=== PATIENT | male | born 1995 | race Caucasian/White ===

== ENCOUNTER 2020-05-24 15:54 | Emergency (ER) | payer OTHER ==
[2020-05-24 16:13] LABS: BILIRUBIN,URINE NEGATIVE (NEGATIVE); GLUCOSE, URINE (UA) NEGATIVE (NEGATIVE); KETONES,URINE (UA) NEGATIVE (NEGATIVE); LEUKOCYTE ESTERASE, URINE NEGATIVE (NEGATIVE); NITRITE,URINE NEGATIVE (NEGATIVE); OCCULT BLOOD,URINE NEGATIVE (NEGATIVE); PROTEIN,URINE NEGATIVE (NEGATIVE); UROBILINOGEN,URINE 0.2 (NORMAL) E.U./dL (NORMAL)
[2020-05-24 16:14] LABS: CLARITY,URINE CLEAR (CLEAR)
--- NOTE | 2020-05-24 16:59 | ED Physician Documentation ---
PD HPI ABD PAIN - Stated complaint Stated Complaint: ABD PX - Chief complaint Chief Complaint: Abd Pain - History obtained from History obtained from: Patient - Additional information Additional information: 3 days of left lower quadrant pain, pretty constant. No associated fevers or chills. No nausea or bowel movement changes. Today noticed some greenish drainage from the umbilicus. Never had that before. No history of abdominal surgeries. Review of Systems Constitutional: denies: Fever, Chills Throat: reports: Reviewed and negative Cardiac: reports: Reviewed and negative Respiratory: reports: Reviewed and negative GI: reports: Abdominal Pain. denies: Nausea, Vomiting, Constipation, Diarrhea PD PAST MEDICAL HISTORY - Present Medications Home Medications: Ambulatory Orders Medication Instructions Recorded Confirmed Ciprofloxacin HCl [Cipro] 500 mg PO BID #20 tablet 05/24/20 metroNIDAZOLE [Flagyl] 500 mg PO TID #30 tablet 05/24/20 - Allergies Allergies/Adverse Reactions: Allergies Allergy/AdvReac Type Severity Reaction Status Date / Time No Known Drug Allergies Allergy Verified 05/24/20 15:59 PD ED PE NORMAL - Vitals Vital signs reviewed: Yes - General General: Alert and oriented X 3, No acute distress - HEENT HEENT: PERRL, EOMI - Neck Neck: Supple, no meningeal sign, No bony TTP - Abdomen Abdomen: Normal bowel sounds, Soft, Other (Mild left lower quadrant tenderness without surgical signs, exploration of his umbilicus shows just a tiny bit of greenish drainage.) - Back Back: No CVA TTP, No spinal TTP - Derm Derm: Normal color, Warm and dry - Neuro Neuro: Alert and oriented X 3, Normal speech Results - Vitals Vitals: Vital Signs - 24 hr 05/24/20 05/24/20 15:56 18:41 Temperature 36.6 C 37.1 C Heart Rate 103 H 100 Respiratory 22 18 Rate Blood Pressure 155/84 H 152/75 H O2 Saturation 100 100 Oxygen O2 Source Room air - Labs Labs: Laboratory Tests 05/24/20 05/24/20 05/24/20 16:06 17:00 17:00 WBC 8.5 RBC 4.67 L Hgb 14.7 Hct 42.2 MCV 90.4 MCH 31.5 H MCHC 34.8 RDW 12.5 Plt Count 322 MPV 8.8 Neut # (Auto) 5.8 Lymph # (Auto) 1.8 [place] # (Auto) 0.7 Eos # (Auto) 0.1 Baso # (Auto) 0.1 Absolute Nucleated RBC 0.00 Nucleated RBC % 0.0 Sodium 135 Potassium 3.8 Chloride 100 L Carbon Dioxide 25 Anion Gap 10.0 BUN 14 Creatinine 1.0 Estimated GFR (MDRD) 90 Glucose 99 Calcium 9.7 Total Bilirubin 1.0 AST 23 ALT 33 Alkaline Phosphatase 57 Total Protein 8.3 H Albumin 4.8 Globulin 3.5 Albumin/Globulin Ratio 1.4 Lipase 21 L Urine Color YELLOW Urine Clarity CLEAR Urine pH 5.0 Ur Specific [place] 1.015 Urine Protein NEGATIVE Urine Glucose (UA) NEGATIVE Urine Ketones NEGATIVE Urine Occult Blood NEGATIVE Urine Nitrite NEGATIVE Urine Bilirubin NEGATIVE Urine Urobilinogen 0.2 (NORMAL) Ur Leukocyte Esterase NEGATIVE Ur Microscopic Review NOT INDICATED Urine Culture Comments NOT INDICATED - Rads (name of study) CT A/P Radiology: EMP read contemporaneously (Sigmoid diverticulitis, uncomplicated.) PD MEDICAL DECISION MAKING - ED course ED course: 24-year-old gentleman with 3 days of left lower quadrant pain, benign exam. Very minimal drainage from the umbilicus, suspect these are unrelated given the findings on CT but both should be treated with the antibiotics. Departure - Departure Disposition: 01 Home, Self Care Clinical Impression: Diverticulitis of gastrointestinal tract Condition: Good Record reviewed to determine appropriate education?: Yes Instructions: ED Diverticulitis Prescriptions: Ciprofloxacin HCl [Cipro] 500 mg PO BID #20 tablet metroNIDAZOLE [Flagyl] 500 mg PO TID #30 tablet Comments: Do not drink alcohol while on the antibiotics. [place] They may want to schedule you for a colonoscopy in 6 to 8 weeks for recheck. Return if worse. No heavy exercise while on the antibiotics. Discharge Date/Time: 05/24/20 19:02
[2020-05-24] MEDS ORDERED: IOVERSOL 320 100 ML VIAL IVP ONE ×2 (17:20→18:21)
[2020-05-24 17:27] LABS: ALBUMIN 4.8 g/dL (3.2-5.5); ALBUMIN/GLOBULIN RATIO 1.4 (1.0-2.2); BASOPHILS # (AUTO) 0.1 10^3/uL (0.0-0.1); BASOPHILS % (AUTO) 0.6 %; CALCIUM 9.7 mg/dL (8.5-10.3); EOSINOPHILS # (AUTO) 0.1 10^3/uL (0.0-0.7); EOSINOPHILS % (AUTO) 1.4 %; HGB - HEMOGLOBIN 14.7 g/dL (14.0-18.0); LYMPHOCYTES # (AUTO) 1.8 10^3/uL (1.5-3.5); LYMPHOCYTES % (AUTO) 20.8 %; MEAN CORPUSCULAR HEMOGLOBIN 31.5 pg (27.0-31.0); MEAN CORPUSCULAR HGB CONC 34.8 g/dL (32.0-36.0); MEAN CORPUSCULAR VOLUME 90.4 fL (80.0-94.0); MEAN PLATELET VOLUME 8.8 fL (7.4-11.4); MONOCYTES # (AUTO) 0.7 10^3/uL (0.0-1.0); MONOCYTES % (AUTO) 8.4 %; NEUTROPHILS # (AUTO) 5.8 10^3/uL (1.5-6.6); NEUTROPHILS % (AUTO) 68.1 %; PLT - PLATELET COUNT 322 10^3/uL (130-450); RED BLOOD COUNT 4.67 10^6/uL (4.70-6.10); RED CELL DISTRIBUTION WIDTH 12.5 % (12.0-15.0); TOTAL PROTEIN 8.3 g/dL (6.7-8.2); WHITE BLOOD COUNT 8.5 x10^3/uL (4.8-10.8)
[2020-05-24 18:42] VITALS: BP 152/75
--- NOTE | 2020-05-24 18:44 | CT Report ---
PROCEDURE: Abdomen/Pelvis W INDICATIONS: IV only, LLQ pain, umbilical drainage ?urachal cys CONTRAST: IV CONTRAST: Optiray 320 ml: 100 PO CONTRAST: *NO PO CONTRAST TECHNIQUE: After the administration of oral and intravenous contrast, 5 mm thick sections acquired from the diap hragms to the symphysis. 5 mm thick coronal and sagittal reformats were acquired. For radiation dos e reduction, the following was used: automated exposure control, adjustment of mA and/or kV accordin g to patient size. COMPARISON: None. FINDINGS: Image quality: Excellent. ABDOMEN: Lung bases: Lung bases are clear. Heart size is normal. Solid organs: Liver and spleen are normal in size and enhancement. Gallbladder appears normal Bili rahul system is non dilated. Pancreas enhances normally. No adrenal nodules. Kidneys demonstrate nor mal size and enhancement, without hydronephrosis. Peritoneum and bowel: Bowel loops demonstrate normal wall thickness and caliber. No free fluid or a ir. Nodes and vessels: No retroperitoneal or mesenteric adenopathy by size criteria. Aorta and inferior vena cava are normal in size. Miscellaneous: No ventral hernias. PELVIS: Genitourinary: Bladder wall thickness is normal. Miscellaneous: No inguinal hernias or adenopathy. At the left lower quadrant the junction of the de scending colon as it approaches the sigmoid colon shows acute diverticulitis, but no peridiverticular abscess. No abnormality is seen at the umbilicus or the rectus area. Bones: No suspicious bony lesions. No vertebral body compression fractures. IMPRESSION: Acute diverticulitis left lower quadrant, no source of umbilical drainage is found. Ther e is no sign of ureteral fluid collection or communication between the umbilicus and the peritoneal s pace. Reviewed by: Rommel Back MD on 05/24/2020 6:43 PM PDT Approved by: Rommel Back MD on 05/24/2020 6:43 PM PDT Station ID: [id number]
[2020-05-24] MEDS ORDERED: CIPROFLOXACIN 250 MG TABLET PO STA (18:48)
[2020-05-24] MEDS ORDERED: metroNIDAZOLE 250 MG TABLET PO STA (18:49)
== END 2020-05-24 19:02 | disposition home or self-care (01) ==
LOC: ED 15:54
DX: K57.32 Diverticulitis of large intestine without perforation or abscess without bleeding (principal)
CPT/HCPCS: 36415; 74177; 80053; 81003; 83690; 85025; 99284; A9270; Q9967; 81001; 87086

== ENCOUNTER 2020-09-17 19:52 | Outpatient (CLI) | payer OTHER | END 2020-09-17 19:53 | disposition EMS.NT | LOC: EMS 19:52 | PROVIDERS: ATTEND Surgery | DX: R45.851 Suicidal ideations (principal) ==

== ENCOUNTER 2020-09-17 20:54 | Emergency (ER) | payer OTHER ==
[2020-09-17 21:09] LABS: BASOPHILS # (AUTO) 0.1 10^3/uL (0.0-0.1); BASOPHILS % (AUTO) 0.8 %; EOSINOPHILS # (AUTO) 0.3 10^3/uL (0.0-0.7); EOSINOPHILS % (AUTO) 3.1 %; HGB - HEMOGLOBIN 14.5 g/dL (14.0-18.0); LYMPHOCYTES # (AUTO) 3.6 10^3/uL (1.5-3.5); LYMPHOCYTES % (AUTO) 36.5 %; MEAN CORPUSCULAR HEMOGLOBIN 31.6 pg (27.0-31.0); MEAN CORPUSCULAR HGB CONC 34.5 g/dL (32.0-36.0); MEAN CORPUSCULAR VOLUME 91.5 fL (80.0-94.0); MEAN PLATELET VOLUME 8.6 fL (7.4-11.4); MONOCYTES # (AUTO) 0.9 10^3/uL (0.0-1.0); MONOCYTES % (AUTO) 9.2 %; NEUTROPHILS # (AUTO) 4.7 10^3/uL (1.5-6.6); NEUTROPHILS % (AUTO) 48.8 %; PLT - PLATELET COUNT 308 10^3/uL (130-450); RED BLOOD COUNT 4.59 10^6/uL (4.70-6.10); RED CELL DISTRIBUTION WIDTH 13.3 % (12.0-15.0); WHITE BLOOD COUNT 9.7 x10^3/uL (4.8-10.8)
[2020-09-17 21:21] LABS: MUDS CUTOFF CONCENTRATIONS CUTOFF CONC BELOW:
[2020-09-17 21:25] LABS: BILIRUBIN,URINE NEGATIVE (NEGATIVE); GLUCOSE, URINE (UA) NEGATIVE (NEGATIVE); KETONES,URINE (UA) NEGATIVE (NEGATIVE); LEUKOCYTE ESTERASE, URINE NEGATIVE (NEGATIVE); NITRITE,URINE NEGATIVE (NEGATIVE); OCCULT BLOOD,URINE NEGATIVE (NEGATIVE); PROTEIN,URINE NEGATIVE (NEGATIVE); UROBILINOGEN,URINE 0.2 (NORMAL) E.U./dL (NORMAL)
[2020-09-17 21:26] LABS: ACETAMINOPHEN < 10 ug/mL (10-30); ALBUMIN 4.3 g/dL (3.2-5.5); ALBUMIN/GLOBULIN RATIO 1.1 (1.0-2.2); ALKALINE PHOSPHATASE 49 IU/L (42-121); ALT ALANINE AMINOTRANSFERASE 79 IU/L (10-60); AST ASPARTATE AMINOTRANSFERASE 37 IU/L (10-42); BILIRUBIN,TOTAL 0.6 mg/dL (0.2-1.0); BUN - BLOOD UREA NITROGEN 17 mg/dL (6-20); CALCIUM 9.4 mg/dL (8.5-10.3); CARBON DIOXIDE - CO2 25 mmol/L (21-32); CHLORIDE 104 mmol/L (101-111); CREATININE 0.8 mg/dL (0.6-1.2); GLUCOSE 95 mg/dL (70-100); LIPASE 24 U/L (22-51); SALICYLATE < 6.0 mg/dL; SODIUM 142 mmol/L (135-145); TOTAL PROTEIN 8.1 g/dL (6.7-8.2)
[2020-09-17 21:26] LABS: CLARITY,URINE CLEAR (CLEAR)
--- NOTE | 2020-09-17 21:29 | ED Physician Documentation ---
PD HPI MHE - Stated complaint Stated Complaint: MHE - Chief complaint Chief Complaint: MHE - History obtained from History obtained from: Patient, Family (spouse (in ED at bedside)) - History of Present Illness Primary symptom: Suicidal ideation Timing - onset: Today (tonight) Pain level max: 0 Pain level now: 0 Contributing factors: Other (no specific inciting event or factors) Similar symptoms before: Work up / diagnostics (T+R from ED 3 days ago for similar problem) Recently seen: Emergency Dept (T+R from ED few days ago for similar) - Additional information Additional information: patient states "I was drinking and depressed and had suicidal ideations so she called 911 on me"; he indicates his (in ED at bedside) called 911. Patient says he feels depressed but no specific triggering/exacerbating factors; he indicates he has had ongoing depression and takes two medications for this (wellbutrin, lexapro; denies recently missing any doses). He admits to drinking alcohol tonight. He denies HI/AH/VH. He was T+R from ED 3 days ago for similar c/o. Denies h/o inpatient MHE stays. He is active duty [employer]. Review of Systems Cardiac: reports: Reviewed and negative Respiratory: reports: Reviewed and negative GI: reports: Reviewed and negative Musculoskeletal: reports: Reviewed and negative Neurologic: reports: Reviewed and negative Psychiatric: reports: Depressed, Suicidal (says he does not have true intent; asked if he has thought of a plan, he says he would cut himself). denies: Homicidal, Hallucinations, Delusions PD PAST MEDICAL HISTORY - Past Medical History Past Medical History: Yes Psych: Depression - Present Medications Home Medications: Ambulatory Orders Medication Instructions Recorded Confirmed Bupropion HCl [Wellbutrin Xl] 1 tab PO DAILY 09/17/20 09/17/20 Escitalopram [Lexapro] 1 tab PO DAILY 09/17/20 09/17/20 - Allergies Allergies/Adverse Reactions: Allergies Allergy/AdvReac Type Severity Reaction Status Date / Time No Known Drug Allergies Allergy Verified 09/17/20 21:02 - Living Situation Living Situation: reports: With spouse/s.o. Living Arrangement: reports: At home - Social History Does the pt smoke?: No Smoking Status: Never smoker Does the pt drink ETOH?: Yes ETOH Use: Liquor PD ED PE NORMAL - Vitals Vital signs reviewed: Yes - General General: Alert and oriented X 3, No acute distress, Well developed/nourished - HEENT HEENT: Moist mucous membranes - Neck Neck: Supple, no meningeal sign - Cardiac Cardiac: RRR, No murmur - Respiratory Respiratory: No respiratory distress, Clear bilaterally - Neuro Neuro: Alert and oriented X 3, shade bander 2-12 intact Eye Opening: Spontaneous Motor: Obeys Commands Verbal: Oriented GCS Score: 15 - Psych Psych: Normal mood, Normal affect PD ED PE EXPANDED - Derm Derm: Other (multiple linear abrasions to bilateral forearms, both flexor and extensor surfaces) Results - Vitals Vitals: Vital Signs - 24 hr 09/17/20 09/18/20 20:59 05:00 Temperature 36.6 C 36.8 C Heart Rate 95 72 Respiratory 18 16 Rate Blood Pressure 147/67 H 139/76 H O2 Saturation 99 98 Oxygen O2 Source Room air - Labs Labs: Laboratory Tests 09/17/20 09/17/20 09/17/20 21:03 21:03 21:03 WBC 9.7 RBC 4.59 L Hgb 14.5 Hct 42.0 MCV 91.5 MCH 31.6 H MCHC 34.5 RDW 13.3 Plt Count 308 MPV 8.6 Neut # (Auto) 4.7 Lymph # (Auto) 3.6 H [place] # (Auto) 0.9 Eos # (Auto) 0.3 Baso # (Auto) 0.1 Absolute Nucleated RBC 0.00 Nucleated RBC % 0.0 Sodium 142 Potassium 3.6 Chloride 104 Carbon Dioxide 25 Anion Gap 13.0 BUN 17 Creatinine 0.8 Estimated GFR (MDRD) 117 Glucose 95 Calcium 9.4 Total Bilirubin 0.6 AST 37 ALT 79 H Alkaline Phosphatase 49 Total Protein 8.1 Albumin 4.3 Globulin 3.8 Albumin/Globulin Ratio 1.1 Lipase 24 TSH 2.11 Urine Color Urine Clarity Urine pH Ur Specific [place] Urine Protein Urine Glucose (UA) Urine Ketones Urine Occult Blood Urine Nitrite Urine Bilirubin Urine Urobilinogen Ur Leukocyte Esterase Ur Microscopic Review Urine Culture Comments Salicylates < 6.0 Urine Opiates Screen Ur Oxycodone Screen Urine Methadone Screen Ur Propoxyphene Screen Acetaminophen < 10 L Ur Barbiturates Screen Ur Tricyclics Screen Ur Phencyclidine Scrn Ur Amphetamine Screen U Methamphetamines Scrn U Benzodiazepines Scrn Urine Cocaine Screen U Cannabinoids Screen Ethyl Alcohol 156.9 SARS-CoV-2 (PCR) 09/17/20 09/17/20 09/18/20 21:20 22:29 00:15 WBC RBC Hgb Hct MCV MCH MCHC RDW Plt Count MPV Neut # (Auto) Lymph # (Auto) [place] # (Auto) Eos # (Auto) Baso # (Auto) Absolute Nucleated RBC Nucleated RBC % Sodium Potassium Chloride Carbon Dioxide Anion Gap BUN Creatinine Estimated GFR (MDRD) Glucose Calcium Total Bilirubin AST ALT Alkaline Phosphatase Total Protein Albumin Globulin Albumin/Globulin Ratio Lipase TSH Urine Color YELLOW Urine Clarity CLEAR Urine pH 5.0 Ur Specific [place] 1.025 Urine Protein NEGATIVE Urine Glucose (UA) NEGATIVE Urine Ketones NEGATIVE Urine Occult Blood NEGATIVE Urine Nitrite NEGATIVE Urine Bilirubin NEGATIVE Urine Urobilinogen 0.2 (NORMAL) Ur Leukocyte Esterase NEGATIVE Ur Microscopic Review NOT INDICATED Urine Culture Comments NOT INDICATED Salicylates Urine Opiates Screen NEGATIVE Ur Oxycodone Screen NEGATIVE Urine Methadone Screen NEGATIVE Ur Propoxyphene Screen NEGATIVE Acetaminophen Ur Barbiturates Screen NEGATIVE Ur Tricyclics Screen NEGATIVE Ur Phencyclidine Scrn NEGATIVE Ur Amphetamine Screen NEGATIVE U Methamphetamines Scrn NEGATIVE U Benzodiazepines Scrn NEGATIVE Urine Cocaine Screen NEGATIVE U Cannabinoids Screen NEGATIVE Ethyl Alcohol 75.4 SARS-CoV-2 (PCR) NOT DETECTED PD MEDICAL DECISION MAKING - ED course Complexity details: reviewed old records (records from ED received (faxed) and reviewed by me), reviewed results, re-evaluated patient, considered differential, d/w patient ED course: telepsych consult obtained and they recommend inpatient treatment which patient is agreeable to at this time, thus voluntary. I discussed the case with Dr. Carlos Valderrama at [facility], accepts transfer Departure - Departure Disposition: 65 Psych Hosp/Unit DC/Xfer Clinical Impression: Depressive disorder Condition: Good
[2020-09-17 21:36] LABS: AMPHETAMINE SCREEN,URINE NEGATIVE (NEGATIVE); BENZODIAZEPINES SCREEN, URINE NEGATIVE (NEGATIVE); COCAINE SCREEN URINE NEGATIVE (NEGATIVE); METHADONE SCREEN, URINE NEGATIVE (NEGATIVE); METHAMPHETAMINES SCREEN, URINE NEGATIVE (NEGATIVE); OPIATE SCREEN, URINE NEGATIVE (NEGATIVE); OXYCODONE SCREEN, URINE NEGATIVE (NEGATIVE); PROPOXYPHENE SCREEN, URINE NEGATIVE (NEGATIVE); TRICYCLIC ANTIDEPRESSANT,URINE NEGATIVE (NEGATIVE)
--- NOTE | 2020-09-18 04:47 | TELEPSYCH PHYS NOTE ---
Telepsych Note - CHIEF COMPLAINT/HX OF PRESENT ILLNESS Chief Complaint and History of Present Illness: Chief Complaint: SI HPI: The patient is a 24-year-old male with a history of depression and alcohol abuse. The patient made several superficial cuts to his arm after breaking into his 's locked sharp box. Patient arrived complaining of suicidal thoughts. He was seen in the ER 3 days ago for the same thing. The patient reports having recurrent suicidal thoughts several times a week. The was present and she has safety concerns. The patient is prescribed Lexapro 10 mg daily and Wellbutrin XL 300 mg daily. - SI/HI/SELF HARM SI/HI/Self Harm Text (Current or History of):: no prior attempts - VIOLENCE/LEGAL/COLLATERAL Violence - Legal - Collateral: Violence: none Legal: none Collateral: see HPI - PSYCHIATRIC HX/TREATMENT HX Psychiatric/Treatment Hx Other: No prior inpatient treatment. current outpatient care. - HOME MEDICATIONS Home Meds (as last confirmed): Patient History Medication Instructions Recorded Confirmed Bupropion HCl [Wellbutrin Xl] 1 tab PO DAILY 09/17/20 09/17/20 Escitalopram [Lexapro] 1 tab PO DAILY 09/17/20 09/17/20 - ALLERGIES Allergies (as last confirmed): Allergies Allergy/AdvReac Type Severity Reaction Status Date / Time No Known Drug Allergies Allergy Verified 09/17/20 21:02 - FAMILY PSYCH/SUICIDE/SOCIAL HX-MENTAL Family - Suicide - Social Hx and Mental Status Exam: Family Psychiatric History: mother-anxiety, depression. Social History: , [place] Employment: active duty [employer], works in [employer] [place] Education: HS grad, some college Stressors: see HPI History: none Abuse: Pt denies physical or sexual abuse Mental Status Examination: Attitude and behavior: cooperative Speech: WNL Affect and mood: sad affect and mood Association and thought processes: linear Thought content: no delusions, + SI, no HI Perception: no hallucinations Sensorium, memory, and orientation: AAOx3 Intellectual functioning: average Insight and judgment: impaired - PATIENT PROBLEM LIST (1) Major depressive disorder, recurrent severe without psychotic features Impression: The patient is a 24-year-old male with a history of depression and alcohol abuse. He has recurrent suicidal thoughts and arrived after making several cuts of his wrists after breaking into a locked box of sharps. The patient is drinking alcohol daily which only increases his risk of self-harm and intensifies depression. The has safety concerns. Inpatient care recommended. - TREATMENT/PHARMACOLOGICAL RECOMMENDATION Treatment - Pharmacological - Therapy Recommendations: Continue Wellbutrin XL 300 mg daily. Start Lexapro 20 mg daily. Start Valium 10 mg PO BID and Ativan 1 mg Q4 hours PRN alcohol withdrawal. Admit as voluntary and transfer to inpatient psychiatric bed was available. - TIME SPENT & PROVIDER LOCATION Telepsych consultation conducted via videoconferencing: Yes List names and roles of persons who participated in consult: Issac Arroyo M.D. [facility] Telepsych Provider Location: [place] Time Telepsych consult began: 03:53 Time Telepsych consult completed: 04:30
[2020-09-18] MEDS ORDERED: hydrOXYzine PAMOATE 25 MG CAPSULE PO STA (05:15)
[2020-09-18 08:00] VITALS: BP 137/71
== END 2020-09-18 09:13 ==
LOC: EDUNIT# → ED 20:54
DX: F33.2 Major depressive disorder, recurrent severe without psychotic features (principal); R45.851 Suicidal ideations; F10.10 Alcohol abuse, uncomplicated; S50.812A Abrasion of left forearm, initial encounter; S50.811A Abrasion of right forearm, initial encounter; X78.9XXA Intentional self-harm by unspecified sharp object, initial encounter; Z20.828 Contact with and (suspected) exposure to other viral communicable diseases
CPT/HCPCS: 36415; 80320; 80329; 81003; 83690; 87635; 99284; 99285; A9270; 80053; 80306; 80307; 81001; 84443; 85025; 87086

== ENCOUNTER 2021-05-19 09:08 | Outpatient (CLI) | payer OTHER ==
--- NOTE | 2021-05-19 10:00 | SLEEP CARE CONSULTATION ---
Information from patient questionnaire entered by Gayla Mcdonald. I have reviewed and concur with the information entered by Gayla Mcdonald. This document represents the service I personally performed and the decisions made by me, Ondina Wright ARNP. History of Present Illness Service Date and Time: 05/19/2021 0908 Reason for Visit: New patient Chief Complaint: reports: Unrefreshed sleep, Snoring, Excessive daytime sleepiness, Fatigue. denies: Observed pauses in breathing, Frequent awakenings at night Date of Onset: 3-4 years Usual bedtime: 10pm - 12am Time it takes to fall asleep: 15 - 120 minutes Snores at night: Yes (sometimes) Observed to quit breathing while asleep: No Sleeps alone due to snoring: No Number of times waking at night: 0-2 Reasons for waking at night: reports: Other (unknown). denies: Choking, Snoring, Gasping for air Toss, Turn, or Twitch while sleeping: Yes Recalls having dreams: Yes Usually gets out of bed at: 6 - 9 am Feels refreshed in the morning: No Morning headache: Yes (sometimes, it doesn't resolve, 1 x a week) Sleepy or fatigued during the day: Yes Ever fallen asleep while driving: No (no drowsy driving) Takes day naps: No Dreams during day naps: Yes Prior sleep studies: No Additional HPI information: I had the pleasure of seeing LIZANDRO CH today regarding the possibility of him having a sleep disorder. His current complaints are excessive daytime sleepiness, fatigue and unrefreshed sleep. He started having some depression and they checked his testosterone level. It turned out to be low. He was sent to an tonal regulator who suggested a sleep study because he is always tired. Patient states he is fatigued during the day and falls asleep during normal activities. He does not feel rested when getting up in the morning. He wakes up with a headache as least once a week that can last all day unless he takes ibuprofen. He sometimes snores but has had not observed pauses in breathing. He states he has a history of depression, anxiety, attention deficit and PTSD. He has been known to talk and act out dreams during his sleep. He does occasionally get some restless sensations in his legs at night when he thinks about it when trying to go to sleep. He also has some issues with his memory occasionally. He has no family history of sleep disordered breathing. - Parasomnia Symptoms Ever been unable to move upon waking from sleep: No Walks in sleep: No Talks in sleep: Yes Ever acted out dreams in sleep: Yes Ever felt weak in the knees when startled or emotional: Yes Bothered by creepy, crawly, restless sensations in legs: Yes (random, sometimes at night) Problems with memory or concentration: Yes (more prob with memory) Subjective Initial [place] Sleepiness Scale score: 13 (in 2020) Past Medical History Past Medical History: reports: Anxiety, Depression, Attention deficit, Other (PTSD) Social History The patient's occupation is a Active . Patient is and lives in [place]. Have you smoked in the past 12 months: Yes Cigarettes per day (20/pack): 10 Years of smokin (on and off) Smoking Pack Years: 3.5 Alcohol use: No Caffeine use: Yes Caffeine amount and frequency: 1-2 drinks daily Family History Family history of sleep disordered breathing: No Allergies and Home Medications Drug allergies reviewed: Yes (NKDA) Home medication list reviewed: Yes Allergy and home medication list: Duloxetine Adderall Hydroxyzine, prn sleep Trazodone, prn sleep Review of Systems Weight gain over past 5 years: 90 Weight loss over past 5 years: 16 Cardiovascular: reports: palpitations. denies: high blood pressure Gastrointestinal: reports: diarrhea, abdominal pain. denies: heartburn Neurological: reports: headaches. denies: head trauma Psychiatric: reports: Attention Deficit Hyperactivity, anxiety, depression Ear/Nose/Throat: reports: sinus problems, wisdom teeth removed. denies: injury to nose, tonsillectomy Endocrine: reports: sluggishness Immunologic: reports: allergies to food or environment (pollen, cats) Physical Exam Blood Pressure: 122/86 Cuff size: wrist Heart Rate: 93 O2 Saturation: 99 Height: 5 ft 10 in Weight: 218 lb Body Mass Index: 31.2 BMI Classification: Obese Neck circumference: 16.25 Mouth and throat: narrow oropharynx Soft palate: long Hard palate: normal Uvula visualization: 25% Mallampati Class III Tongue: enlarged in size with teeth spaulding on lateral edges Tonsils: 1+ Neck: normal w/o lymphadenopathy or thyromegaly Heart: regular rate and rhythm Lungs: clear bilaterally Impression and Plan 1. Suspected Obstructive Sleep Apnea-Hypopnea Syndrome, as suggested by a history of irregular snoring, morning headache, unrefreshed sleep, cognitive impairment, and excessive daytime sleepiness. Narrow oropharynx and obesity are common predisposing factors for obstructive sleep apnea-hypopnea syndrome. I recommend proceeding to polysomnography to confirm the diagnosis and to assess severity. If the patient has significant sleep disordered breathing, a manual CPAP titration study will also be performed to find the optimal treatment pressure. I informed the patient of what the sleep studies involve and after some discussion, obtained agreement to proceed. The pathophysiology of obstructive sleep apnea-hypopnea syndrome was discussed with the patient and health risks of cardiovascular and cerebrovascular disease if not treated. AAS brochure for obstructive sleep apnea-hypopnea syndrome given and reviewed. Risks of drowsy driving discussed in detail and patient advised to avoid long distance driving and to cable puller at the first sign of drowsiness. Patient agreed to plan. * Schedule polysomnography +- manual CPAP titration study and return in 1-2 weeks after the study to discuss result and initiate therapy. * Avoid long distance driving or driving when feeling sleepy. * Avoid alcohol, sedative and muscle relaxant around bedtime. * Attempt to lose weight. * Review instructions provided by trained office staff on how to prepare for the sleep study. * Return for follow-up after sleep study completed. Counseling Topics: Weight loss health impact Visit Type: In Office Time Spent with Patient (minutes): 31 Provider Statement: I spent 100% of the Face to Face Visit with the patient with greater than 50% spent counseling the patient and coordination of care.
[2021-05-19 10:01] VITALS: BP 122/86
== END 2021-05-19 09:09 | disposition home or self-care (01) ==
LOC: SC 09:08
PROVIDERS: ATTEND Nurse Practitioner Family
DX: R06.83 Snoring (principal); R51.9 Headache, unspecified; G47.8 Other sleep disorders; R41.9 Unspecified symptoms and signs involving cognitive functions and awareness; R06.81 Apnea, not elsewhere classified; E66.9 Obesity, unspecified; Z68.31 Body mass index [BMI] 31.0-31.9, adult
CPT/HCPCS: 99203; 99212

== ENCOUNTER 2021-07-15 20:38 | Outpatient (CLI) | payer OTHER | END 2021-07-15 20:39 | disposition home or self-care (01) | LOC: SC 20:38 | PROVIDERS: ATTEND Nurse Practitioner Family | DX: R06.83 Snoring (principal); R53.83 Other fatigue; R51.9 Headache, unspecified; G47.8 Other sleep disorders; F32.9 Major depressive disorder, single episode, unspecified; G47.10 Hypersomnia, unspecified | CPT/HCPCS: 95810 ==

== ENCOUNTER 2021-07-28 15:49 | Outpatient (CLI) | payer OTHER ==
--- NOTE | 2021-07-28 16:04 | SLEEP CARE CONSULTATION ---
Information from patient questionnaire entered by Gayla Mcdonald. I have reviewed and concur with the information entered by Gayla Mcdonald. This document represents the service I personally performed and the decisions made by , Ondina Wright ARNP. History of Present Illness Service Date and Time: 07/28/2021 1549 Initial [place] Sleepiness Scale score: 13 (in 2020) Current [place] Sleepiness Scale score: 11 Additional HPI information: LIZANDRO CH returns for follow up and results of the recently performed polysomnography. The patient was informed of the following findings: Patient was found to have no significant sleep disordered breathing with an average AHI of 0.8 and vanda oxygen saturation of 91%. I explained the pathophysiology behind obstructive sleep apnea. Patient does not have sleep apnea and was advised how weight gain could increase the risk of developing sleep apnea in the future. I strongly encouraged the patient to lose weight. Patient has moderate snoring. Snoring can be reduced by weight loss. Weight loss is best achieved with diet consult. Patient instructed to contact PCP for referral. Snoring can also be treated with an oral appliance from a dentist. Advised to check insurance coverage. In addition, an ENT evaluation can be do to see if other treatment is indicated. Patient does not drink alcohol. Patient was cautioned about risks of drowsy driving until sleepiness symptoms resolve. Sleep Study - Results Type of Sleep Study: Polysomnography Prior sleep studies: No Polysomnography/Home Sleep Study results: IMPRESSION: The quality of the study is good. The patient had normal sleep efficiency. The sleep architecture was normal as well. Respiratory monitoring showed no significant sleep disordered breathing (AHI = 0.8) or hypoxia (vanda oxygen saturation of 91%). The patient slept almost exclusively in supine position (supine AHI = 0.8; non-supine = 0.00). Snore was light to moderate in intensity. There was no significant periodic leg movement of sleep. Cardiac rhythm was normal sinus rhythm without significant arrhythmia. No abnormal behavior (parasomnia) observed during the night. Allergies and Home Medications Home medication list reviewed: Yes (no changes) Review of Systems Review of systems same as previous: Yes (no changes) Physical Exam Heart Rate: 97 O2 Saturation: 98 Height: 5 ft 10 in Weight: 202 lb Body Mass Index: 29.0 BMI Classification: Overweight Impression and Plan Snoring but no significant sleep disordered breathing. Patient advised that often weight loss will reduce snoring as well as apnea risk. An oral appliance can also be used for snoring. This would require a dental consultation. Patient cautioned not to use other online appliances as can cause bite issues. A list of accredited dentists in [facility] and one local dentist who makes oral appliances is available in office. Patient is advised to check if insurance will cover. An ENT consult can also be helpful to determine if any other treatment is an option. Patient given copy of How to Get Better sleep, [employer] brochure and encouraged to review to improve his sleep hygiene. * Attempt to lose weight * Avoid alcohol consumption near bedtime * The patient is cautioned about driving until sleepiness is completely resolved . * Return as needed. Counseling Topics: Weight loss health impact Visit Type: In Office Time Spent with Patient (minutes): 12 Provider Statement: I spent 100% of the Face to Face Visit with the patient with greater than 50% spent counseling the patient and coordination of care.
== END 2021-07-28 15:50 | disposition home or self-care (01) ==
LOC: SC 15:49
PROVIDERS: ATTEND Nurse Practitioner Family
DX: R06.83 Snoring (principal)
CPT/HCPCS: 99212

== ENCOUNTER 2024-06-18 19:37 | Emergency (ER) | payer OTHER ==
[2024-06-18 20:28] LABS: BILIRUBIN,URINE NEGATIVE (NEGATIVE); LEUKOCYTE ESTERASE, URINE MODERATE (NEGATIVE); NITRITE,URINE POSITIVE (NEGATIVE); OCCULT BLOOD,URINE MODERATE (NEGATIVE)
[2024-06-18 20:39] LABS: CLARITY,URINE SL. CLOUDY (CLEAR)
[2024-06-18 20:42] LABS: BACTERIA,URINE Many /HPF (None Seen); SQUAMOUS EPITHELIAL CELL,UR RARE Squamous (<= Few); WBC CLUMPS,URINE PRESENT; WBC,URINE >25 /HPF (0-3)
--- NOTE | 2024-06-18 21:21 | ED Physician Documentation ---
PD HPI MALE - Stated complaint Stated Complaint: - Chief complaint Chief Complaint: Abd Pain - History obtained from History obtained from: Patient - Additional information Additional information: 28-year-old male presents for 2 to 3 days of chills as well as burning with urination. States he is concerned that he may have a urinary tract infection. Googled his symptoms and is concerned about possible bloodstream infection. Denies concern for or possibility of STIs and declined testing at this time. Review of Systems Constitutional: reports: Chills. denies: Fever GI: denies: Abdominal Pain, Nausea, Vomiting, Constipation, Diarrhea : reports: Dysuria. denies: Frequency, Hesitancy, Unable to Void PD PAST MEDICAL HISTORY - Past Medical History Past Medical History: Yes Cardiovascular: None Respiratory: None Neuro: None Endocrine/Autoimmune: None GI: None : None HEENT: None Psych: Depression, Other Musculoskeletal: None Derm: None - Past Surgical History Past Surgical History: No - Present Medications Home Medications: Ambulatory Orders Medication Instructions Recorded Confirmed Cefpodoxime Proxetil [Vantin] 200 mg PO BID 10 Days #20 tablet 06/18/24 DULoxetine [Cymbalta] 20 mg PO DAILY 06/18/24 06/18/24 Dextroamphetamine/Amphetamine 20 mg PO DAILY 06/18/24 06/18/24 [Adderall 20 mg Tablet] traZODone [Desyrel] 50 mg PO DAILY 06/18/24 06/18/24 - Allergies Allergies/Adverse Reactions: Allergies Allergy/AdvReac Type Severity Reaction Status Date / Time No Known Drug Allergies Allergy Verified 06/18/24 19:50 - Social History Does the pt smoke?: No Smoking Status: Never smoker Does the pt drink ETOH?: Yes Does the pt have substance abuse?: No - Immunizations Immunizations are current?: Yes - POLST Patient has POLST: No PD ED PE NORMAL - Vitals Vital signs reviewed: Yes - General General: Alert and oriented X 3, No acute distress, Well developed/nourished - Cardiac Cardiac: RRR - Respiratory Respiratory: No respiratory distress - Derm Derm: Normal color, Warm and dry, No rash - Neuro Neuro: Alert and oriented X 3, band salvager 2-12 intact, No motor deficit, Normal speech Results - Vitals Vitals: Vital Signs - 24 hr 06/18/24 06/18/24 19:45 21:39 Temperature 36.9 C 36.8 C Heart Rate 95 81 Respiratory 15 16 Rate Blood Pressure 144/73 H 132/74 H O2 Saturation 99 100 Oxygen O2 Source Room air - Labs Labs: Laboratory Tests 06/18/24 19:54 Urine Color ORANGE Urine Clarity SL. CLOUDY Urine pH 6.0 Ur Specific [place] TNP Urine Protein TNP Urine Glucose (UA) TNP Urine Ketones TNP Urine Occult Blood MODERATE H Urine Nitrite POSITIVE H Urine Bilirubin NEGATIVE Urine Urobilinogen TNP Ur Leukocyte Esterase MODERATE H Urine RBC 11-25 H Urine WBC >25 H Urine WBC Clumps PRESENT Ur Squamous Epith Cells RARE Squamous Urine Bacteria Many H Ur Microscopic Review INDICATED Urine Culture Comments INDICATED PD Medical Decision Making - ED course Complexity details: reviewed results, re-evaluated patient, considered differential, d/w patient, d/w family ED course: Burning with urination and bad smell. Declines testing or treatment for STIs at this time. Urinalysis confirms infection. Patient's vitals are stable, he is afebrile, no signs or symptoms of sepsis at this time. Patient counseled on urinalysis results, precautions for home discussed. ED return precautions discussed at bedside Departure - Departure Disposition: Home, Self Care Clinical Impression: UTI (urinary tract infection) Qualifiers: Urinary tract infection type: acute cystitis Condition: Stable Instructions: ED UTI Cystitis Male Prescriptions: Cefpodoxime Proxetil [Vantin] 200 mg PO BID 10 Days #20 tablet Comments: Finish all antibiotics prescribed even if you feel improved. If you notice worsening fever, back pain, or are not getting better after at least 48 hours of therapy then please return for repeat evaluation. Make sure you drink plenty of fluids, if you have sexual intercourse urinate immediately afterwards. Antibiotics have been sent to the [facility] Forms: PCP List Discharge Date/Time: 06/18/24 21:40
[2024-06-18] MEDS: CEFPODOXIME PROXETIL 100 MG TABLET PO ONE (21:35)
[2024-06-18 21:43] VITALS: BP 132/74; O2SAT 100
--- NOTE | 2024-06-20 12:48 | ED Physician Documentation ---
ED Addendum - Addendum Addendum: 06/20/24 12:48 Urine culture reviewed, E. coli that was resistant to ampicillin and in termediate to nitrofurantoin. He is on cefpodoxime which should be appropriate.
== END 2024-06-18 21:40 | disposition home or self-care (01) ==
LOC: ED 19:37
DX: N30.00 Acute cystitis without hematuria (principal); Z79.899 Other long term (current) drug therapy
CPT/HCPCS: 81001; 87086; 99283; A9270; 81003; 87077; 87181

== ENCOUNTER 2024-07-10 08:00 | Outpatient (CLI) | payer OTHER ==
[2024-07-10 22:58] LABS: CHLAMYDIA TRACHOMATIS DNA NEGATIVE (NEGATIVE); NEISSERIA GONORRHOEAE DNA NEGATIVE (NEGATIVE); TRICHOMONAS VAGINALIS DNA NEGATIVE (NEGATIVE)
== END 2024-07-10 23:59 | disposition home or self-care (01) ==
LOC: LAB.N 08:00
PROVIDERS: ATTEND Physician Assistant Medical
DX: R30.0 Dysuria (principal); R82.998 Other abnormal findings in urine
CPT/HCPCS: 87086; 87491; 87591; 87661